=== PATIENT | female | born 1950 | race Caucasian/White ===

== ENCOUNTER → 2018-09-22 | Outpatient (CLI) | payer MEDICARE, OTHER ==
--- NOTE | 2018-09-23 10:59 | CRLMY ---
INDICATION: Bilateral Screening Mammogram, Asymptomatic Female age 67 been obtained using full-field digital technique. These mammographic images were interpreted with the benefit of computer-aided detection. COMPARISON FILM: 09/21/17, 09/18/16. FINDINGS: There are scattered fibroglandular densities. There are no masses or calcifications that are suspicious for malignancy. IMPRESSION: There is no radiographic evidence for malignancy. ASSESSMENT: BI-RADS Category 2: Benign RECOMMENDATION: Routine screening mammogram in 1 year. A lay language report of this examination will be provided to the patient. Breast Tomosynthesis was used in this interpretation. [email or web address] Dictated by: Bethel [email or web address].MD @ 09/23/2018 10:58:07 (Electronically Signed)
== END ==
LOC: JP.MAM 12:39
PROVIDERS: ATTEND Family Medicine
DX: Z12.31 Encounter for screening mammogram for malignant neoplasm of breast (principal)
CPT/HCPCS: 77063; 77067

== ENCOUNTER 2018-11-11 21:33 | Emergency (ER) | payer MEDICARE, OTHER ==
[2018-11-11] MEDS ORDERED: Acetaminophen 500 MG Tab PO ONE (21:49)
--- NOTE | 2018-11-11 21:54 | EDM.PDOC ---
ED HPI GENERAL MEDICAL PROBLEM - General Chief Complaint: Laceration Stated Complaint: RIGHT FOOT STEPPED ON NAIL Time Seen by Provider: 11/11/18 21:45 Source of Information: Reports: Patient, Old Records History Limitations: Reports: No Limitations - History of Present Illness INITIAL COMMENTS - FREE TEXT/NARRATIVE: 68 yo female stepped on a nail about 1700h today. Took ibuprofen 600 mg after the injury. Thinks she is UTD on her tetanus, is not sure. Says her BP is high when she goes to the doctor, but it is not high at home with her device, but she has never taken this device into the clinic to make sure it is accurate. Is not on any BP meds. 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 Foot Pain Score (Numeric/FACES): 7 - Related Data Allergies Allergy/AdvReac Type Severity Reaction Status Date / Time No Known Allergies Allergy Verified 11/11/18 21:50 Home Meds: Home Meds Levothyroxine [Synthroid] 88 mcg PO DAILY 01/30/14 [History] Vitamin B Complex 1 tab PO DAILY 01/30/14 [History] Amoxicillin/Potassium Clav [Augmentin 875-125 Tablet] 1 each PO Q12H #6 tablet 11/11/18 [Rx] ED ROS GENERAL - Review of Systems Review Of Systems: See Below Constitutional: Reports: No Symptoms Musculoskeletal: Reports: Foot Pain (R forefoot) Skin: Reports: Wound (puncture R forefoot) Neurological: Reports: No Symptoms ED EXAM, SKIN/RASH Exam: See Below Exam Limited By: No Limitations General Appearance: Alert, WD/WN, No Apparent Distress Neurological: Alert, Oriented, CN II-XII Intact, Normal Cognition, No Motor/ Sensory Deficits Psychiatric: Normal Affect, Normal Mood Skin: Warm, Dry, Normal Color, No Rash, Wound/Incision (puncture R forefoot at about the level of the great toe MT joint, plantar surface. ) Location, Skin: Lower Extremity, Right Associated features: Tenderness Course - Vital Signs Last Recorded V/S: Last Vital Signs Temp 36.2 C 11/11/18 21:45 Pulse 77 11/11/18 21:45 Resp 16 11/11/18 21:45 BP 216/90 H 11/11/18 21:45 Pulse Ox 96 11/11/18 21:45 - Orders/Labs/Meds Orders: Active Orders 24 hr Category Date Time Status Vaccines to be Administered [RC] PER UNIT ROUTINE Care 11/11/18 22:10 Active Meds: Medications Discontinued Medications Generic Name Dose Route Start Last Admin Trade Name Helene PRN Reason Stop Dose Admin Acetaminophen 1,000 mg 11/11/18 21:49 11/11/18 22:05 Tylenol Extra Strength PO 11/11/18 21:50 1,000 mg ONETIME ONE Administration Amoxicillin/Clavulanate Potassium 1 tab 11/11/18 22:07 Augmentin 875 Mg/125 Mg PO 11/11/18 22:08 ONETIME ONE Bacitracin 1 dose 11/11/18 22:10 Bacitracin Oint 1 Gm TOP 11/11/18 22:11 ONETIME ONE Diphtheria/Tetanus/Acell Pertussis 0.5 ml 11/11/18 22:09 Adacel IM 11/11/18 22:10 .ONCE ONE Departure - Departure Time of Disposition: 22:25 Disposition: Home, Self-Care 01 Condition: Good Clinical Impression: Puncture wound of foot Qualifiers: Encounter type: initial encounter Laterality: right Qualified Code(s): S91.331A - Puncture wound without foreign body, right foot, initial encounter - Discharge Information *PRESCRIPTION DRUG MONITORING PROGRAM REVIEWED*: No *COPY OF PRESCRIPTION DRUG MONITORING REPORT IN PATIENT RICH: No Prescriptions: Amoxicillin/Potassium Clav [Augmentin 875-125 Tablet] 1 each PO Q12H #6 tablet Referrals: Robert Lilly MD [Primary Care Provider] - Forms: ED Department Discharge Additional Instructions: Wash your foot with soap and water twice daily. Walk on your heel for the next 3 days. Acetaminophen as needed for pain relief. Take Augmentin every 12 hrs with food until gone. Recheck Thursday in the clinic. Return here over thew weekend if signs of infection develop. - My Orders Last 24 Hours: My Active Orders 11/11/18 22:10 Vaccines to be Administered [RC] PER UNIT ROUTINE - Assessment/Plan Last 24 Hours: My Active Orders 11/11/18 22:10 Vaccines to be Administered [RC] PER UNIT ROUTINE
[2018-11-11] MEDS ORDERED: Amoxicillin/Clavulanate K 875-125 MG Tab PO ONE (22:07)
[2018-11-11] MEDS ORDERED: Diphtheria,Pertussis(Acell),Tetanus Vaccine 0.5 ML SDV IM ONE (22:09)
[2018-11-11] MEDS ORDERED: Bacitracin Oint 1 GM U/D Packet TOP ONE (22:10)
== END 2018-11-11 22:37 | disposition home or self-care (01) ==
LOC: JP.ED 21:33
DX: S91.331A Puncture wound without foreign body, right foot, initial encounter (principal); Z23 Encounter for immunization; Z79.899 Other long term (current) drug therapy; W45.0XXA Nail entering through skin, initial encounter
CPT/HCPCS: 90471; 90715; 99283; A9270

== ENCOUNTER 2023-10-22 09:46 | Day surgery (SDC) | payer MEDICARE, OTHER ==
[2023-10-22] MEDS: Sodium Chloride 0.9% 1,000 ML IV SCH (10:13)
[2023-10-22] MEDS ORDERED: Propofol 200 MG/20 ML SDV ONE ×2 (11:20→13:28)
[2023-10-22] MEDS ORDERED: fentaNYL 100 MCG/2 ML SDV ONE (11:20)
[2023-10-22] MEDS ORDERED: Midazolam 1 MG/ML 2 ML SDV ONE (11:21)
[2023-10-22] MEDS: Lidocaine 1% 20 ML MDV INJECT ONE (12:23)
[2023-10-22] MEDS: ceFAZolin 2 GM in Premix Bag 1 BAG IV ONE (13:21)
[2023-10-22] MEDS: Bupivacaine 0.5% 50 ML MDV ONE (13:30)
[2023-10-22] MEDS: Lidocaine 1% with EPINEPHrine 1:100,000 50 ML MDV ONE (13:30)
== END 2023-10-22 14:54 | disposition home or self-care (01) ==
LOC: JP.SDS 09:46
PROVIDERS: ATTEND Surgery
DX: N60.91 Unspecified benign mammary dysplasia of right breast (principal); D05.01 Lobular carcinoma in situ of right breast
CPT/HCPCS: 00400; 19120; 19281; 36415; 76098; 76642; 77065; 86850; 86900; 86901; 88307; 88341; 88342; J0665; J0690; J2250; J2704; J3010; J7030